=== PATIENT | male | born 1985 | race American Indian/Alaskan Native ===

== ENCOUNTER 2019-07-27 11:16 | Emergency (ER) | payer SELFPAY ==
--- NOTE | 2019-07-27 11:42 | Emergency Department Report ---
ED ENT HPI - General Chief complaint: Dental/Oral Stated complaint: SWOLLEN FACE AND TOOTH PAIN Time Seen by Provider: 07/27/19 11:37 Source: patient Mode of arrival: Ambulatory Limitations: No Limitations - History of Present Illness Initial comments: Pt is a 33 yo male who presents to the ED with c/o left upper and left lower dental pain that began last week. he states he began to have swelling in the left side of the face last night. pt states he has not seen a dentist since childhood. no fever, no n/v/d, no difficulty swallowing. no PMHx. allergy to naproxen which he states causes itching. - Related Data Previous Rx's Medication Instructions Recorded Last Taken Type Ibuprofen [Motrin 600 MG tab] 600 mg PO Q8H PRN #14 tablet 07/27/19 Unknown Rx Penicillin Vk [Veetids TAB] 500 mg PO QID 7 Days #56 tablet 07/27/19 Unknown Rx Allergies Allergy/AdvReac Type Severity Reaction Status Date / Time No Known Allergies Allergy Unverified 07/27/19 11:44 ED Dental HPI - General Chief complaint: Dental/Oral Stated complaint: SWOLLEN FACE AND TOOTH PAIN Time Seen by Provider: 07/27/19 11:37 Source: patient Mode of arrival: Ambulatory Limitations: No Limitations - Related Data Previous Rx's Medication Instructions Recorded Last Taken Type Ibuprofen [Motrin 600 MG tab] 600 mg PO Q8H PRN #14 tablet 07/27/19 Unknown Rx Penicillin Vk [Veetids TAB] 500 mg PO QID 7 Days #56 tablet 07/27/19 Unknown Rx Allergies Allergy/AdvReac Type Severity Reaction Status Date / Time No Known Allergies Allergy Unverified 07/27/19 11:44 ED Review of Systems ROS: Stated complaint: SWOLLEN FACE AND TOOTH PAIN Other details as noted in HPI Comment: All other systems reviewed and negative ED Past Medical Hx - Past Medical History Previous Medical History?: No - Surgical History Past Surgical History?: Yes Additional Surgical History: surgery to right first finger - Medications Home Medications: Home Medications Medication Instructions Recorded Confirmed Last Taken Type Ibuprofen [Motrin 600 MG tab] 600 mg PO Q8H PRN #14 tablet 07/27/19 Unknown Rx Penicillin Vk [Veetids TAB] 500 mg PO QID 7 Days #56 tablet 07/27/19 Unknown Rx ED Physical Exam - General Limitations: No Limitations General appearance: alert, in no apparent distress - Head Head exam: Present: atraumatic, normocephalic - Eye Eye exam: Present: normal appearance - ENT ENT exam: Present: normal orophraynx, mucous membranes moist, other (very poor dentition, several cracked/missing teeth present, there is edema/induration present in the left upper gum line, there is left sided facial edema, uvula is midline, no uvula edema, no uvular deviation, no elevation of the tonue, no submandibular edema) - Respiratory Respiratory exam: Present: normal lung sounds bilaterally. Absent: respiratory distress, wheezes, rales, rhonchi, stridor, chest wall tenderness, accessory muscle use, decreased breath sounds, prolonged expiratory - Cardiovascular Cardiovascular Exam: Present: regular rate, normal rhythm, normal heart sounds. Absent: systolic murmur, diastolic murmur, rubs, gallop - Neurological Exam Neurological exam: Present: alert, oriented X3 - Psychiatric Psychiatric exam: Present: normal affect, normal mood - Skin Skin exam: Present: warm, dry, intact ED Course Vital Signs 07/27/19 11:42 Temperature 98.1 F Pulse Rate 88 Respiratory 18 Rate Blood Pressure 143/108 O2 Sat by Pulse 100 Oximetry ED Medical Decision Making - Medical Decision Making Pt is a 33 yo male who presents to the ED with c/o left upper and left lower dental pain that began last week. he states he began to have swelling in the left side of the face last night. pt states he has not seen a dentist since childhood. no fever, no n/v/d, no difficulty swallowing. no PMHx. allergy to naproxen. vitals with slightly elevated BP likely secondary to dental discomfo rt, pt given list of primary care doctors to follow up with. on exam: very poor dentition, several cracked/missing teeth present, there is edema/induration present in the left upper gum line, there is left sided facial edema, uvula is midline, no uvula edema, no uvular deviation, no elevation of the tonue, no submandibular edema. examination consistent with dental abscess. pt given prescription for penicillin vk and ibuprofen. advised pt please take medication as prescribed. please follow up with a dentist. it is very important you follow up with a dentist for a permanent solution. return to the emergency room for any new or worsening symptoms. - Differential Diagnosis dental abscess, dental caries, submandibular abscess, ludwigs, toothache Critical care attestation.: If time is entered above; I have spent that time in minutes in the direct care of this critically ill patient, excluding procedure time. ED Disposition Clinical Impression: Dental caries, Dental abscess Disposition: TO HOME OR SELFCARE Is pt being admited?: No Does the pt Need Aspirin: No Condition: Stable Instructions: Dental Abscess (ED) Additional Instructions: please take medication as prescribed. please follow up with a dentist. it is very important you follow up with a dentist for a permanent solution. return to the emergency room for any new or worsening symptoms. Prescriptions: Ibuprofen [Motrin 600 MG tab] 600 mg PO Q8H PRN #14 tablet PRN Reason: Pain Penicillin Vk [Veetids TAB] 500 mg PO QID 7 Days #56 tablet Referrals: [facility] [Outside] - 2-3 Days [facility] [Outside] - 2-3 Days Time of Disposition: 11:44 Print Language: [place]
[2019-07-27 11:45] VITALS: BP 143/108
== END 2019-07-27 12:00 | disposition home or self-care (01) ==
LOC: ED 11:16
DX: K02.9 Dental caries, unspecified (principal); K04.7 Periapical abscess without sinus
CPT/HCPCS: 99282